=== PATIENT | male | born 1950 | race Two or more races ===

== ENCOUNTER 2019-10-31 08:35 | Day surgery (SDC) | payer MEDICAID ==
[~2019-10-31] VITALS: Ht 160 cm; Wt 80.7 kg
[2019-10-31] VITALS (7 sets, daily range): BP systolic 118–147; BP diastolic 75–85
[2019-10-31] MEDS ORDERED: LR 1000ml ONE (09:30)
[2019-10-31] MEDS ORDERED: Lidocaine 1% MPF 10mg/ml 5ml ONE (09:30)
--- NOTE | 2019-10-31 09:53 | Short Stay Surgery H&P ---
History of Present Illness History of Present Illness Chief Complaint see recent office consult note HPI Ronnie Keene is a 69 year old male who was admitted on for Gerd And Screening Patient History Allergies: Coded Allergies: No Known Allergies (Unverified , 10/31/19) Plan Attestation Are the patient's medical conditions optimized for surgery? Jamel Medina MD October 31, 2019 09:53
--- NOTE | 2019-10-31 09:53 | Pre-Procedure Note/Attestation ---
Pre-Procedure Note/Attestation Complete Prior to Procedure Planned Procedure: not applicable Procedure Narrative: esophagogastroduodenoscopy and colonoscopy Indications for Procedure Pre-Operative Diagnosis: screening colon, GERD Attestation I attest that I discussed the nature of the procedure; its benefits; risks and complications; and alternatives (and the risks and benefits of such alternatives ), prior to the procedure, with the patient (or the patient's legal physician representative). I attest that, if there was a reasonable possibility of needing a blood transfusion, the patient (or the patient's legal physician representative) was given the [facility] standardized written summary, pursuant to the [place] Blood Safety Act ([place] Health and Safety Code # 1645, as amended). I attest that I re-evaluated the patient just prior to the surgery and that there has been no change in the patient's H&P, except as documented below: Jamel Medina MD October 31, 2019 09:53
[2019-10-31] MEDS ORDERED: LR 1000ml 1,000 ML IVLG SCH (10:11)
[2019-10-31] MEDS ORDERED: DiphenhydrAMINE 50mg/ml Inj IVP PRN (10:15)
[2019-10-31] MEDS ORDERED: Midazolam 2mg/2ml Inj IVP PRN (10:15)
[2019-10-31] MEDS ORDERED: Atropine Inj 1mg/10ml Syr IV PRN (10:15)
[2019-10-31] MEDS ORDERED: fentaNYL 100 mcg/2 mL IV PRN (10:15)
--- NOTE | 2019-10-31 10:15 | Anethesia Preoperative Eval ---
Anesthesia Pre-op PMH/ROS General Date of Evaluation: October 31, 2019 Time of Evaluation: 09:30 Anesthesiologist: carol ASA Score: ASA 4 Mallampati Score Class I : Soft palate, uvula, fauces, pillars visible Class II: Soft palate, uvula, fauces visible Class III: Soft palate, base of uvula visible Class IV: Only hard plate visible Mallampati Classification: Class II Surgeon: mercedez Diagnosis: gerd, colon screening Surgical Procedure: egd, colonoscopy Anesthesia History: none Social History: current smoker Family History: no anesthesia problems Allergies: Coded Allergies: No Known Allergies (Unverified , 10/31/19) Medications: see eMAR Patient NPO?: Yes Past Medical History Cardiovascular: Reports: other - pacemaker Other: obesity Anesthesia Pre-op Phys. Exam Physician Exam Constitutional: NAD Neurologic: CN 2-12 intact Cardiovascular: RRR Respiratory: CTA Gastrointestinal: S/NT/ND Airway Exam Mallampati Score: Class II MO: limited Neck: short TMD: 2fb ROM: limited Anesthesia Pre-op A/P Studies Pre-op Studies: EKG - av dual paced rhythm with prolonged av conduction Risk Assessment & Plan Assessment: asa4 Plan: mac Status Change Before Surgery: No Pre-Antibiotics Drug: Haley Lucero MD October 31, 2019 10:15
--- NOTE | 2019-10-31 10:33 | Endoscopy Procedure Note ---
Endoscopy Procedure Note General Indication for Procedure: screening colon, gerd Procedures Performed: EGD, colonoscopy Operative Findings/Diagnosis: gastritis, diverticulosis Specimen: yes Pt Tolerated Procedure Well: Yes Estimated Blood Loss: none Anesthesia Anesthesiologist: soumya Anesthesia: MAC Inserted Devices Implant(s) used?: No Quality Quality of Bowel Preparation: Good Did scope reach the cecum?: Yes Was there any complications?: No GI Core Measures 50 yrs or older w/o bx or poly: No 10yrs. F/U recommended: Yes If not recommended, why?: Above average risk 18 years or older w/prev. colo: No Jamel Medina MD October 31, 2019 10:33
--- NOTE | 2019-10-31 10:42 | Immediate Post-Op Evaluation ---
Immediate Post-Op Evalulation Immediate Post-Op Evalulation Procedure: egd/colonoscopy w/bx Date of Evaluation: October 31, 2019 Time of Evaluation: 10:38 IV Fluids: 300ml lr Blood Products: none Estimated Blood Loss: negligible Blood Pressure Systolic: 118 Blood Pressure Diastolic: 75 Pulse Rate: 60 Respiratory Rate: 18 O2 Sat by Pulse Oximetry: 100 Temperature (Fahrenheit): 97.3 Pain Score (1-10): 0 Nausea: No Vomiting: No Complications none Patient Status: awake, reacts, patent Hydration Status: adequate Drug: Haley Lcuero MD October 31, 2019 10:42
--- NOTE | 2019-10-31 10:44 | 48 Hour Post Anesthesia Eval ---
Post Anesthesia Evaluation Procedure: egd/colonoscopy w/bx Date of Evaluation: October 31, 2019 Time of Evaluation: 10:40 Blood Pressure Systolic: 132 0: 81 Pulse Rate: 60 Respiratory Rate: 18 Temperature (Fahrenheit): 97.3 O2 Sat by Pulse Oximetry: 100 Airway: patent Nausea: No Vomiting: No Pain Intensity: 0 Hydration Status: adequate Cardiopulmonary Status: stable Mental Status/LOC: patient returned to baseline Post-Anesthesia Complications: none Follow-up care needed: N/A Haley Reyna MD October 31, 2019 10:44
[2019-10-31] MEDS ORDERED: PROSCAR5 MG ORAL (12:30)
[2019-10-31] MEDS ORDERED: ASPIR 8181 MG ORAL (12:30)
[2019-10-31] MEDS ORDERED: FISH OIL CAP1000 MG ORAL (12:31)
[2019-10-31] MEDS ORDERED: FLOMAX0.4 MG ORAL (12:33)
[2019-10-31] MEDS ORDERED: FAMOTIDINE20 MG ORAL (12:34)
[2019-10-31] MEDS ORDERED: GLEEVEC400 MG ORAL (12:35)
[2019-10-31] MEDS ORDERED: Vit D PO (12:37)
--- NOTE | 2019-10-31 16:14 | Procedure Note ---
DATE OF PROCEDURE: 10/31/2019 SURGEON: Jamel Medina MD. PROCEDURE: Upper endoscopy with biopsy and colonoscopy. ANESTHESIA: Per Dr. Zhong. INSTRUMENT: Olympus adult flexible upper endoscope and colonoscope. INDICATION: Screening colonoscopy evaluation and chronic GERD. REASON FOR PROCEDURE: The procedure, risks, benefits, and possible consequences, including hemorrhage, aspiration, perforation and infection, and alternative treatments, were explained to the patient/legal guardian by Dr. Jamel Medina and the patient/legal guardian understood and accepted these risks. DESCRIPTION OF PROCEDURE: After informed consent was obtained and the patient was adequately sedated, Olympus upper endoscope was advanced from mouth into the third portion of the duodenum and retroflexion was performed in the stomach. The patient has evidence of duodenitis and gastritis, highly suspicious for H pylori infection. Random biopsies from antrum and body was obtained to rule out H. pylori. The patient also some irregular Z-line and minimum distal esophagitis. No obvious ulceration or bleeding. No significant hiatal hernia. At this time, the upper endoscope was retrieved and the patient was turned over for colonoscopy. First, rectal exam was performed, which was positive for internal hemorrhoids. Then, the scope was advanced from rectum into the cecum documented by appendiceal orifice, ileocecal valve, and right upper quadrant palpation. Quality of prep was very good. The patient had diverticulosis mainly on the left colon, but it was 2 or 3 also in the cecum. No obvious polyp, mass, or any pathology was seen. Retroflexion of the rectum showed evidence of large internal hemorrhoids. SUMMARY OF FINDINGS: 1. Gastritis. 2. Duodenitis. 3. Minimum distal esophagitis. 4. Internal hemorrhoids. 5. Diverticulosis. RECOMMENDATIONS: 1. Followup path and treat accordingly. 2. Treat for hemorrhoids if it becomes symptomatic. 3. Repeat colonoscopy in 5 years. Jamel Medina M.D. DR: Randi JOB#: [id number] CC:
== END 2019-10-31 11:40 | disposition home or self-care (01) ==
LOC: GAS 08:35
DX: Z12.11 Encounter for screening for malignant neoplasm of colon (principal); K21.9 Gastro-esophageal reflux disease without esophagitis; K29.50 Unspecified chronic gastritis without bleeding; K29.80 Duodenitis without bleeding; K20.9 Esophagitis, unspecified; K64.8 Other hemorrhoids; K57.90 Diverticulosis of intestine, part unspecified, without perforation or abscess without bleeding; F17.200 Nicotine dependence, unspecified, uncomplicated; Z95.0 Presence of cardiac pacemaker; E66.9 Obesity, unspecified; Z68.31 Body mass index [BMI] 31.0-31.9, adult
CPT/HCPCS: 43239; 45378; 94003; J2704; J7120; Z7512; 94150